=== PATIENT | male | born 1950 | race Caucasian/White ===

== ENCOUNTER 2022-10-01 05:46 | Day surgery (SDC) | payer MEDICARE ==
[2022-09-30 11:54] VITALS: BMI 33.5
[2022-10-01] MEDS ORDERED: Lidocaine 1% (PF) 30 ML VIAL ONE (06:11)
[2022-10-01] MEDS ORDERED: Heparin 10,000 UNITS/ 10 ML VIAL ONE (06:11)
[2022-10-01] MEDS ORDERED: FENTANYL 50 MCG/ML 1 ML VIAL ONE (07:50)
[2022-10-01] MEDS ORDERED: Midazolam HCl 2 mg/2 ml Vial ONE (07:50)
== END 2022-10-01 13:14 | disposition home or self-care (01) ==
LOC: SDC 05:46
PROVIDERS: ATTEND Internal Medicine Cardiovascular Disease
PROC: 4A023N7 Measurement of Cardiac Sampling and Pressure, Left Heart, Percutaneous Approach (ICD-10-PCS; principal; 2022-10-01)
PROC: B2111ZZ Fluoroscopy of Multiple Coronary Arteries using Low Osmolar Contrast (ICD-10-PCS; 2022-10-01)
DX: I25.10 Atherosclerotic heart disease of native coronary artery without angina pectoris (principal); I47.29 Other ventricular tachycardia; E78.00 Pure hypercholesterolemia, unspecified; Z79.82 Long term (current) use of aspirin; Z79.899 Other long term (current) drug therapy
CPT/HCPCS: 93458; 99152; C1769; C1894; J1644; J2001; J2250; J3010

== ENCOUNTER 2023-01-27 13:02 | Outpatient (CLI) | payer MEDICARE ==
[2023-01-27 14:36] LABS: #Basophils 0.1 10x3/uL (0.0-0.2); #Eosinphils 0.2 10x3/uL (0.0-0.5); #Monocytes 0.7 10x3/uL (0.0-1.1); #Neutrophils 4.7 10x3/uL (1.5-8.4); %Basophils 0.9 % (0.0-2.0); %Eosinophils 2.9 % (0.0-6.0); %Lymphocytes 27.5 % (18.0-47.0); %Monocytes 8.8 % (0.0-10.0); %Neutrophils 59.8 % (40.0-75.0); Hemoglobin 15.1 g/dL (13.5-17.5); Mean Corpuscular HGB CONC 33.9 g/dL (32.0-36.0); Mean Corpuscular Hemoglobin 33.1 pg (27.0-33.0); Mean Corpuscular Volume 97.8 fl (81.2-95.1); Mean Platelet Volume 10.3 fl (7.4-10.4); Platelet Count 170 10x3/uL (150-450); RBC Distribution Width 12.8 % (11.5-14.5); Red Blood Cell (RBC) Count 4.56 10x6/uL (4.32-5.72); White Blood Cell (WBC) Count 7.9 10x3/uL (3.5-10.5)
[2023-01-27 16:09] LABS: Anion Gap 11 mmol/L (10-20); BUN (Urea Nitrogen) 20 mg/dL (8.4-25.7); Calc. Creatinine Clearance 0 mL/min (70-130); Calcium 8.7 mg/dL (7.8-10.44); Carbon Dioxide 27 mmol/L (23-31); Chloride 106 mmol/L (98-107); Estimated GFR 55; Glucose 97 mg/dL (83-110); Potassium 4.3 mmol/L (3.5-5.1); Sodium 140 mmol/L (136-145)
== END 2023-01-27 13:03 | disposition home or self-care (01) ==
LOC: LABBT 13:02
PROVIDERS: ATTEND Specialist
DX: Z01.818 Encounter for other preprocedural examination (principal); K42.9 Umbilical hernia without obstruction or gangrene
CPT/HCPCS: 71046; 80048; 85025; 93005; 93010

== ENCOUNTER 2023-01-30 05:50 | Day surgery (SDC) | payer MEDICARE ==
[2023-01-27 13:52] VITALS: BMI 33.5
[2023-01-30] MEDS ORDERED: Acetaminophen 500 MG TAB ONE (06:20)
[2023-01-30] MEDS ORDERED: CEFAZOLIN 2 GM VIAL ONE (06:34)
[2023-01-30] MEDS ORDERED: Sodium Chloride 0.9% 100 ML ONE (06:35)
[2023-01-30] MEDS ORDERED: Ketorolac Tromethamine 30 MG/ML VIAL ONE (06:35)
[2023-01-30] MEDS ORDERED: Bupivacaine/Epinephrine 0.25% 30 ML VIAL ONE (06:36)
[2023-01-30] MEDS ORDERED: fentaNYL PF 100 MCG/2 ML SYRINGE ONE (06:53)
[2023-01-30] MEDS ORDERED: PROPOFOL 200 MG/20 ML VIAL ONE (07:43)
[2023-01-30] MEDS ORDERED: Glycopyrrolate 0.2 MG/ML 5 ML SYRINGE ONE (07:43)
[2023-01-30] MEDS ORDERED: NEOSTIGMINE 3 MG/3 ML SYR 3 MG/3 ML SYRINGE ONE (07:43)
[2023-01-30] MEDS ORDERED: Dexamethasone 20 MG/5 ML VIAL ONE (07:43)
[2023-01-30] MEDS ORDERED: Lidocaine 1% PF 5 ML VIAL ONE (07:43)
[2023-01-30] MEDS ORDERED: Ondansetron PF 4 MG/2 ML Vial ONE (07:43)
== END 2023-01-30 11:11 | disposition home or self-care (01) ==
LOC: SDC 05:50
PROVIDERS: ATTEND Specialist
PROC: 0WUF0JZ Supplement Abdominal Wall with Synthetic Substitute, Open Approach (ICD-10-PCS; principal; 2023-01-30)
DX: K42.9 Umbilical hernia without obstruction or gangrene (principal); E66.9 Obesity, unspecified; Z68.33 Body mass index [BMI] 33.0-33.9, adult; Z79.82 Long term (current) use of aspirin; Z79.899 Other long term (current) drug therapy
CPT/HCPCS: C1889; J1100; J1885; J2405; J2704; J3490